=== PATIENT | male | born 1955 | race African-American/Black ===

== ENCOUNTER 2019-11-22 13:41 | Inpatient (IN) | payer MEDICAID ==
[~2019-11-22] VITALS: Ht 185.4 cm; Wt 78.9 kg
[2019-11-22 15:39] LABS: BASOPHILS % 1.1 % (0.0-2.0); EOSINOPHILS % 5.3 % (0.0-5.0); HEMATOCRIT. 38.3 % (42.0-52.0); HEMOGLOBIN. 12.7 g/dL (14.0-18.0); LYMPHOCYTES % 35.7 % (20.0-50.0); MEAN CORPUSCULAR HEMOGLOBIN 30.8 pg (28.0-32.0); MEAN CORPUSCULAR VOLUME 93.2 fL (80.0-94.0); MEAN PLATELET VOLUME 7.8 fl (7.4-10.4); MONOCYTES % 9.8 % (2.0-8.0); NEUTROPHILS % 48.1 % (40.0-76.0); PLATELET 228 x1000/uL (130-400); RED BLOOD CELL COUNT 4.11 mill/uL (4.7-6.1); RED CELL DISTRIBUTION WIDTH 13.9 % (11.6-14.6)
[2019-11-22 15:44] LABS: CHLORIDE 104 mEq/L (98-107)
[2019-11-22] MEDS: MORPHINE SULFATE 2 MG/ML CPJ (NOT FOR IM USE) IV PRN ×3 (20:45→21:19)
[2019-11-22 22:21] VITALS: BP 101/49
[2019-11-23] VITALS: BP 90/53
[2019-11-23] MEDS: HYDROMORPHONE HCL/PF 2MG/ML CPJ IV PRN ×2 (01:26→06:18)
[2019-11-23 04:00] VITALS: BP 88/42
[2019-11-23 06:00] VITALS: BP 100/61
[2019-11-23 07:38] LABS: EOSINOPHILS % 4.8 % (0.0-5.0); HEMATOCRIT. 34.2 % (42.0-52.0); HEMOGLOBIN. 11.3 g/dL (14.0-18.0); LYMPHOCYTES % 48.8 % (20.0-50.0); MEAN CORPUSCULAR HEMOGLOBIN 30.7 pg (28.0-32.0); MEAN CORPUSCULAR VOLUME 92.5 fL (80.0-94.0); MEAN PLATELET VOLUME 7.8 fl (7.4-10.4); MONOCYTES % 10.4 % (2.0-8.0); PLATELET 234 x1000/uL (130-400); RED CELL DISTRIBUTION WIDTH 13.7 % (11.6-14.6)
[2019-11-23 07:43] LABS: CHLORIDE 103 mEq/L (98-107)
[2019-11-23 08:00] VITALS: BP 86/56
[2019-11-23] MEDS ORDERED: HYDROCODONE/ACETAMINOPHEN 10/325MG TABLET PO PRN (10:15)
[2019-11-23] MEDS ORDERED: ACETAMINOPHEN 325MG TABLET PO PRN (10:15)
[2019-11-23] MEDS ORDERED: ONDANSETRON HCL 4MG/2ML INJ IV PRN (10:15)
[2019-11-23 12:45] VITALS: BP 87/45
[2019-11-23] MEDS: DOCUSATE SODIUM 250MG CAPSULE PO SCH (12:48)
[2019-11-23 16:00] VITALS: BP 100/51
[2019-11-23] MEDS: MIDODRINE HCL 5MG TABLET PO SCH (16:04)
[2019-11-23] MEDS: DEXAMETHASONE 4MG/ML 1ML VIAL IV SCH (18:48)
[2019-11-23 19:56] LABS: CLARITY URINE CLEAR (CLEAR); COLOR URINE YELLOW (YELLOW); KETONES URINE NEGATIVE (NEGATIVE); LEUKOCYTE ESTERASE URINE 2+ (NEGATIVE); NITRITE URINE NEGATIVE (NEGATIVE); OCCULT BLOOD URINE 2+ (NEGATIVE); PROTEIN URINE NEGATIVE (NEGATIVE)
[2019-11-23 20:16] LABS: *AMPHETAMINES SCREEN URINE NEGATIVE (NEGATIVE); *BARBITURATES SCREEN URINE NEGATIVE (NEGATIVE); *BENZODIAZEPINES SCREEN URINE NEGATIVE (NEGATIVE); *COCAINE SCREEN URINE NEGATIVE (NEGATIVE)
[2019-11-23 20:17] LABS: CANNABINOID URINE SCREEN NEGATIVE (NEGATIVE); METHADONE URINE SCREEN NEGATIVE (NEGATIVE); OPIATES URINE SCREEN NEGATIVE (NEGATIVE); PHENCYCLIDINE URINE SCREEN NEGATIVE (NEGATIVE)
[2019-11-23] MEDS ORDERED: LACTULOSE 20G/30ML UDC PO PRN (21:00)
[2019-11-24] MEDS: DEXAMETHASONE 4MG/ML 1ML VIAL IV SCH ×2 (02:57→11:35)
[2019-11-24] MEDS: HYDROMORPHONE HCL/PF 2MG/ML CPJ IV PRN ×3 (03:12→13:02)
[2019-11-24 08:00] VITALS: BP 103/62
[2019-11-24] MEDS: DOCUSATE SODIUM 250MG CAPSULE PO SCH (09:08)
[2019-11-24] MEDS: MIDODRINE HCL 5MG TABLET PO SCH ×2 (09:09→13:01)
[2019-11-24 12:00] VITALS: BP 107/60
[2019-11-24] MEDS ORDERED: HYDR-4009 PO (13:04)
[2019-11-24] MEDS ORDERED: SORBITOL 70% SOLN 30ML PO NR (13:15)
[2019-11-24 15:12] VITALS: BP 107/60
== END 2019-11-24 15:30 | disposition home health service (06) | DRG 347 ==
LOC: ER 14:03 → MERGE 18:53 → 6EST 18:53 → ENRESERV 20:12
PROVIDERS: ADMIT Internal Medicine; ATTEND Internal Medicine
DX: M48.02 Spinal stenosis, cervical region (principal); M48.04 Spinal stenosis, thoracic region; M48.061 Spinal stenosis, lumbar region without neurogenic claudication; F17.210 Nicotine dependence, cigarettes, uncomplicated; K59.00 Constipation, unspecified; R20.0 Anesthesia of skin; D64.9 Anemia, unspecified; E87.1 Hypo-osmolality and hyponatremia; I10 Essential (primary) hypertension; I95.9 Hypotension, unspecified; G95.89 Other specified diseases of spinal cord; Z71.6 Tobacco abuse counseling
CPT/HCPCS: 36415; 72141; 72146; 72148; 73502; 80048; 80053; 80305; 81003; 85025; 93005; 93970; 96374; 97162; 99285; J1100; J1170; J2270

== ENCOUNTER 2020-11-21 01:17 | Emergency (ER) | payer MEDICAID ==
[~2020-11-21] VITALS: Ht 182.9 cm; Wt 77.0 kg
[~2020-11-21 01:17] MED LIST: HYDR-4009 PO
[2020-11-21 03:11] LABS: BASOPHILS % 0.8 % (0.0-2.0); EOSINOPHILS % 2.4 % (0.0-5.0); HEMATOCRIT. 37.9 % (42.0-52.0); HEMOGLOBIN. 12.6 g/dL (14.0-18.0); LYMPHOCYTES % 25.5 % (20.0-50.0); MEAN CORPUSCULAR HEMOGLOBIN 30.8 pg (28.0-32.0); MEAN CORPUSCULAR VOLUME 92.9 fL (80.0-94.0); MEAN PLATELET VOLUME 7.7 fl (7.4-10.4); MONOCYTES % 5.4 % (2.0-8.0); NEUTROPHILS % 65.9 % (40.0-76.0); PLATELET 254 x1000/uL (130-400); RED BLOOD CELL COUNT 4.08 mill/uL (4.7-6.1); RED CELL DISTRIBUTION WIDTH 13.7 % (11.6-14.6)
[2020-11-21 03:19] LABS: CHLORIDE 108 mEq/L (98-107)
[2020-11-21 03:24] LABS: ETHANOL BLOOD 229 mg/dL
[2020-11-21 10:20] VITALS: BP 106/58
== END 2020-11-21 10:30 | disposition home or self-care (01) ==
LOC: ER 01:37
DX: G93.40 Encephalopathy, unspecified (principal); F17.290 Nicotine dependence, other tobacco product, uncomplicated; R51.9 Headache, unspecified
CPT/HCPCS: 36415; 71045; 80053; 80320; 85025; 99285; 99406; G0480

== ENCOUNTER 2022-11-23 16:14 | Emergency (ER) | payer BC, MEDICAID ==
[~2022-11-23] VITALS: Ht 180.3 cm; Wt 90.0 kg
[~2022-11-23 16:14] MED LIST changes: +ASPI-1406 PO; +ATOR20TA65 PO; +BACL-141 PO; +BENA40TA91 MT; +CARI250T MT; +CARI250T PO; +CYCL25PO15 MT; +DIAZ5SOL PO; +DICY10SO PO; +DIPH25CA83 PO; +FAMO-135 PO; +GABA-290 PO; +LACT10SO81 MT; +NAPR-1176 MT
[2022-11-23 16:19] VITALS: O2SAT 100
[2022-11-23 17:41] LABS: BASOPHILS % 0.7 % (0.0-2.0); EOSINOPHILS % 3.7 % (0.0-5.0); HEMATOCRIT. 35.6 % (42.0-52.0); HEMOGLOBIN. 11.4 g/dL (14.0-18.0); LYMPHOCYTES % 39.7 % (20.0-50.0); MEAN CORPUSCULAR HEMOGLOBIN 29.3 pg (28.0-32.0); MEAN CORPUSCULAR HGB CONC 32.1 g/dL (31.0-37.0); MEAN CORPUSCULAR VOLUME 91.2 fL (80.0-94.0); MEAN PLATELET VOLUME 7.9 fl (7.4-10.4); MONOCYTES % 9.5 % (2.0-8.0); NEUTROPHILS % 46.4 % (40.0-76.0); PLATELET 218 x1000/uL (130-400); RED CELL DISTRIBUTION WIDTH 13.1 % (11.6-14.6); WHITE BLOOD COUNT 3.8 x1000/uL (4.5-11.0)
[2022-11-23] MEDS ORDERED: MORPHINE SULFATE 4 MG/ML CPJ (NOT FOR IM USE) IV STA (17:44)
[2022-11-23] MEDS ORDERED: ONDANSETRON HCL 4MG/2ML INJ IV STA (17:44)
[2022-11-23 17:45] LABS: PROTHROMBIN TIME 11.2 sec (9.6-11.0)
[2022-11-23 17:47] LABS: CHLORIDE 107 mEq/L (98-107); INDEX HEMOLYSI 1 (1-3); INDEX ICTERIC 1 (1-4); INDEX LIPEMIC 1 (1-3); POTASSIUM 3.9 mEq/L (3.5-5.1); SODIUM 138 mEq/L (136-145)
[2022-11-23 17:55] LABS: ALANINE AMINOTRANSFERASE 21 IU/L (13-61); ALBUMIN 3.3 g/dL (3.4-5.0); ASPARTATE AMINOTRANSFERASE 12 IU/L (15-37); BILIRUBIN TOTAL 0.4 mg/dL (0.1-1.0); CALCIUM 8.3 mg/dL (8.5-10.1); CARBON DIOXIDE 28 mEq/L (21-32); CREATININE 0.7 mg/dL (0.6-1.3); GLUCOSE 88 mg/dL (70-105); PROTEIN TOTAL 7.1 g/dL (6.0-8.3); UREA NITROGEN BLOOD 8 mg/dL (7-21)
[2022-11-23] MEDS ORDERED: IOHEXOL-300 100 ML BOTTLE ONE (19:15)
[2022-11-23] MEDS ORDERED: DICY20TA2 MT (21:13)
[2022-11-23] MEDS ORDERED: DICYCLOMINE HCL 20MG TABLET PO SCH (21:15)
[2022-11-23] MEDS ORDERED: HYDROCODONE/ACETAMINOPHEN 5/325MG TABLET PO PRN (21:15)
[2022-11-23 21:34] VITALS: BP 127/74; PULSE 72; RESP 16; TEMP 97.8
== END 2022-11-23 21:37 | disposition home or self-care (01) ==
LOC: ER 16:14
DX: R10.32 Left lower quadrant pain (principal); F12.90 Cannabis use, unspecified, uncomplicated; E78.00 Pure hypercholesterolemia, unspecified; R20.0 Anesthesia of skin; I10 Essential (primary) hypertension; Z98.890 Other specified postprocedural states
CPT/HCPCS: 99285; 74177; 96374; 96375; 80053; 83605; 83690; 85025; 85610; 36415; Q9967; J2405; J2270

== ENCOUNTER 2024-05-30 19:57 | Inpatient (IN) | payer BC, MEDICAID ==
[~2024-05-30] VITALS: Ht 185.4 cm; Wt 76.7 kg
[~2024-05-30 19:57] MED LIST changes: +ASPI-1079 PO; -ASPI-1406 PO; +ASPI-1497 PO; +BACL-141 MT; -BACL-141 PO; +BENA40TA91 PO; -CARI250T PO; +CARI350T27 MT; +DIAZ10TA4 PO; -DIAZ5SOL PO; +DICL75TA5 PO; -DICY10SO PO; +DICY20TA2 MT; +DICY20TA2 PO; -DIPH25CA83 PO; +FAMO40TA7 MT; +HYDR-4797 PO; +LUBI24CA5 PO; +NALO25TA4 MT; +NALO25TA4 PO; +NAPR-1486 MT; +PANT40TA51 MT; +ZONI100C45 PO
[2024-05-31] MEDS ORDERED: IBUP-1523 MT (03:03)
[2024-05-31] MEDS ORDERED: TOPUD MT (03:03)
[2024-05-31] MEDS: SODIUM CHLORIDE 0.45% 1,000 ML IV ONE (13:30)
[2024-05-31 14:30] VITALS: BP 117/53; PULSE 56; RESP 16; TEMP 36.4
[2024-05-31 16:00] VITALS: BP 117/53; PULSE 56; RESP 16; TEMP 36.4; O2SAT 100
[2024-05-31 20:00] VITALS: BP 120/64; PULSE 65; RESP 17; TEMP 36.4; O2SAT 100
[2024-05-31] MEDS: BACLOFEN 10MG TABLET PO SCH (22:27)
[2024-05-31] MEDS: GABAPENTIN 300MG CAPSULE PO SCH (22:27)
[2024-05-31] MEDS: LACTULOSE 20G/30ML UDC PO SCH (22:28)
[2024-05-31] MEDS: HYDROCODONE/ACETAMINOPHEN 10/325MG TABLET PO PRN (22:28)
[2024-06-01] VITALS: BP 93/56; PULSE 68; RESP 20; TEMP 37.3; O2SAT 97
[2024-06-01 04:00] VITALS: BP 92/55; PULSE 60; RESP 18; TEMP 36.4; O2SAT 100
[2024-06-01] MEDS: PANTOPRAZOLE 40MG DR TABLET PO SCH (06:50)
[2024-06-01 08:00] VITALS: BP 96/51; PULSE 51; RESP 17; TEMP 36.1; O2SAT 100
[2024-06-01] MEDS: ASPIRIN 81MG TABLET PO SCH (08:40)
[2024-06-01 12:00] VITALS: BP 126/50; PULSE 58; RESP 18; TEMP 36.2; O2SAT 100
[2024-06-01 16:00] VITALS: BP 103/64; PULSE 60; RESP 18; TEMP 36.3; O2SAT 100
[2024-06-01 19:14] LABS: CLARITY URINE CLEAR (CLEAR); COLOR URINE YELLOW (YELLOW); GLUCOSE URINE NEGATIVE (NEGATIVE); KETONES URINE NEGATIVE (NEGATIVE); LEUKOCYTE ESTERASE URINE NEGATIVE (NEGATIVE); NITRITE URINE NEGATIVE (NEGATIVE); OCCULT BLOOD URINE NEGATIVE (NEGATIVE); PH URINE 5.5 (4.5-8.0); PROTEIN URINE NEGATIVE (NEGATIVE); SPECIFIC GRAVITY URINE 1.021 (1.005-1.030); UROBILINOGEN URINE 0.2 E.U./dL (0.2-1.0)
[2024-06-01 20:00] VITALS: BP 91/55; PULSE 68; RESP 16; TEMP 37.2; O2SAT 99
[2024-06-01] MEDS: ATORVASTATIN CALCIUM 40MG TABLET PO SCH (21:45)
[2024-06-01 21:47] LABS: BASOPHILS % 1.3 % (0.0-2.0); EOSINOPHILS % 5.9 % (0.0-5.0); HEMATOCRIT. 35.7 % (42.0-52.0); HEMOGLOBIN. 11.4 g/dL (14.0-18.0); LYMPHOCYTES % 42.2 % (20.0-50.0); MEAN CORPUSCULAR HEMOGLOBIN 29.3 pg (28.0-32.0); MEAN CORPUSCULAR HGB CONC 32.1 g/dL (31.0-37.0); MEAN CORPUSCULAR VOLUME 91.3 fL (80.0-94.0); MEAN PLATELET VOLUME 8.3 fl (7.4-10.4); MONOCYTES % 11.1 % (2.0-8.0); NEUTROPHILS % 39.5 % (40.0-76.0); PLATELET 190 x1000/uL (130-400); RED BLOOD CELL COUNT 3.91 mill/uL (4.7-6.1); RED CELL DISTRIBUTION WIDTH 13.5 % (11.6-14.6); WHITE BLOOD COUNT 3.7 x1000/uL (4.5-11.0)
[2024-06-01 21:50] LABS: CHLORIDE 100 mEq/L (98-107); POTASSIUM 4.3 mEq/L (3.5-5.1); SODIUM 134 mEq/L (136-145)
[2024-06-01 21:51] LABS: CALCIUM 9.1 mg/dL (8.7-10.4); CARBON DIOXIDE 27 mEq/L (21-32)
[2024-06-01 21:56] LABS: CREATININE 0.9 mg/dL (0.6-1.3); GLUCOSE 105 mg/dL (70-105); UREA NITROGEN BLOOD 11 mg/dL (9-23)
[2024-06-02] VITALS: BP 103/56; PULSE 64; RESP 20; TEMP 36.4; O2SAT 95
[2024-06-02 04:00] VITALS: BP 118/60; PULSE 66; RESP 18; TEMP 36.7; O2SAT 99
[2024-06-02] MEDS: LACTULOSE 20G/30ML UDC PO PRN (09:30)
[2024-06-02 12:00] VITALS: BP 116/51; PULSE 53; RESP 18; TEMP 36.5; O2SAT 99
[2024-06-02 16:00] VITALS: BP 123/43; PULSE 62; RESP 19; TEMP 36.4; O2SAT 99
[2024-06-02 18:15] VITALS: BP 123/43; PULSE 62; TEMP 97.5; O2SAT 99
== END 2024-06-02 19:04 | disposition home or self-care (01) | DRG 83 ==
LOC: ER 19:57 → 6EST 05-31 04:23
PROVIDERS: ADMIT Internal Medicine; ATTEND Internal Medicine
DX: S06.899A Other specified intracranial injury with loss of consciousness of unspecified duration, initial encounter (principal); G81.91 Hemiplegia, unspecified affecting right dominant side; M48.02 Spinal stenosis, cervical region; J45.909 Unspecified asthma, uncomplicated; W01.0XXA Fall on same level from slipping, tripping and stumbling without subsequent striking against object, initial encounter; I10 Essential (primary) hypertension; E78.00 Pure hypercholesterolemia, unspecified; Z82.49 Family history of ischemic heart disease and other diseases of the circulatory system; Y93.89 Activity, other specified; Y92.89 Other specified places as the place of occurrence of the external cause; Y99.8 Other external cause status
CPT/HCPCS: 36415; 72141; 80048; 81003; 85025; 97163; 99285; A4606

== ENCOUNTER 2024-08-14 08:03 | Emergency (ER) | payer MEDICARE, MEDICAID ==
[~2024-08-14] VITALS: Ht 182.9 cm; Wt 86.0 kg
[~2024-08-14 08:03] MED LIST changes: +CARI-517 MT; -CARI350T27 MT; +IBUP-1523 MT; +LUBI24CA40 PO; -LUBI24CA5 PO; +TOPUD MT
[2024-08-14 08:06] VITALS: O2SAT 99
[2024-08-14 08:12] VITALS: TEMP 36.6
[2024-08-14] MEDS: KETOROLAC 30MG/ML VIAL IM ONE (09:05)
[2024-08-14] MEDS: HYDROCODONE/ACETAMINOPHEN 10/325MG TABLET PO ONE (09:07)
[2024-08-14] MEDS ORDERED: HYDR-4001 MT (09:18)
[2024-08-14] MEDS ORDERED: CELE-116 MT (09:18)
[2024-08-14 10:09] VITALS: BP 122/70; PULSE 58; RESP 16; O2SAT 100
== END 2024-08-14 11:04 | disposition home or self-care (01) ==
LOC: ER 08:09
DX: S42.031A Displaced fracture of lateral end of right clavicle, initial encounter for closed fracture (principal); J45.909 Unspecified asthma, uncomplicated; I10 Essential (primary) hypertension; E78.00 Pure hypercholesterolemia, unspecified; F12.90 Cannabis use, unspecified, uncomplicated; Z79.1 Long term (current) use of non-steroidal anti-inflammatories (NSAID); Z79.899 Other long term (current) drug therapy; Z79.82 Long term (current) use of aspirin; Z98.890 Other specified postprocedural states; W01.0XXA Fall on same level from slipping, tripping and stumbling without subsequent striking against object, initial encounter; Y93.89 Activity, other specified; Y92.89 Other specified places as the place of occurrence of the external cause; Y99.8 Other external cause status
CPT/HCPCS: 99284; 73000; 73030; 96372; J1885

== ENCOUNTER 2025-03-07 10:34 | Emergency (ER) | payer BC, MEDICAID ==
[~2025-03-07] VITALS: Ht 185.4 cm; Wt 77.0 kg
[~2025-03-07 10:34] MED LIST changes: -ASPI-1079 PO; -BACL-141 MT; -BENA40TA91 MT; -BENA40TA91 PO; -CARI-517 MT; -CARI250T MT; -CYCL25PO15 MT; -DIAZ10TA4 PO; -DICL75TA5 PO; -DICY20TA2 MT; -DICY20TA2 PO; -FAMO40TA7 MT; -HYDR-4009 PO; -HYDR-4797 PO; -IBUP-1523 MT; -LACT10SO81 MT; -LUBI24CA40 PO; -NALO25TA4 PO; -NAPR-1176 MT; -NAPR-1486 MT; -PANT40TA51 MT; -TOPUD MT
[2025-03-07 10:37] VITALS: O2SAT 100
[2025-03-07] MEDS: KETOROLAC 30MG/ML VIAL IM ONE (11:21)
[2025-03-07] MEDS: ACETAMINOPHEN 325MG TABLET PO ONE (11:21)
[2025-03-07 11:34] LABS: BASOPHILS % 1.2 % (0.0-2.0); EOSINOPHILS % 4.3 % (0.0-5.0); HEMATOCRIT. 34.7 % (42.0-52.0); HEMOGLOBIN. 11.2 g/dL (14.0-18.0); LYMPHOCYTES % 36.2 % (20.0-50.0); MEAN PLATELET VOLUME 8.0 fl (7.4-10.4); MONOCYTES % 8.0 % (2.0-8.0); NEUTROPHILS % 50.3 % (40.0-76.0); PLATELET 244 x1000/uL (130-400); RED BLOOD CELL COUNT 3.93 mill/uL (4.7-6.1); RED CELL DISTRIBUTION WIDTH 13.0 % (11.6-14.6)
[2025-03-07 11:48] LABS: CREATININE 0.9 mg/dL (0.6-1.3); UREA NITROGEN BLOOD 10 mg/dL (9-23)
[2025-03-07 11:49] LABS: PROTEIN TOTAL 7.9 g/dL (6.0-8.3)
[2025-03-07 11:50] LABS: ASPARTATE AMINOTRANSFERASE 14 IU/L (<34); BILIRUBIN TOTAL 0.4 mg/dL (0.1-1.0)
[2025-03-07] MEDS ORDERED: IOHEXOL-300 100 ML BOTTLE ONE (14:02)
[2025-03-07 16:12] VITALS: BP 113/66; PULSE 64; RESP 17; TEMP 36.4; O2SAT 100
== END 2025-03-07 16:21 | disposition home or self-care (01) ==
LOC: ER 10:34
DX: M54.9 Dorsalgia, unspecified (principal); E78.00 Pure hypercholesterolemia, unspecified; F10.20 Alcohol dependence, uncomplicated; I10 Essential (primary) hypertension; J45.909 Unspecified asthma, uncomplicated; Z79.899 Other long term (current) drug therapy
CPT/HCPCS: 99285; 74178; 80053; 85025; 36415; 96372; J1885; Q9967